=== PATIENT | male | born 1930 | race Caucasian/White ===

== ENCOUNTER → 2016-10-18 | Outpatient (CLI) | payer MEDICARE ==
[~2016-10-18] MED LIST: ASPI-345 PO; CEPH-507 PO; CHOL200018 PO; CPR500T PO; GBPN100C PO; GLIP10TA13 PO; LSNP10T PO; LVT.025T PO; METF500T4 PO; METO25TA60 PO; MGX400T PO; MULT1TAB PO; OMEP20TA PO; PRED20TA PO; SAXA2.5T PO; SIMV40TA2 PO; TERA5CAP3; WARF5TAB PO
== END ==
LOC: LAB 14:23
PROVIDERS: ATTEND Family Medicine
DX: Z51.81 Encounter for therapeutic drug level monitoring (principal); Z79.01 Long term (current) use of anticoagulants
CPT/HCPCS: 36415; 85610

== ENCOUNTER → 2016-11-23 | Outpatient (CLI) | payer MEDICARE | LOC: LAB 09:35 | PROVIDERS: ATTEND Family Medicine | DX: Z51.81 Encounter for therapeutic drug level monitoring (principal); Z79.01 Long term (current) use of anticoagulants | CPT/HCPCS: 36415; 85610 ==

== ENCOUNTER → 2016-12-06 | Outpatient (CLI) | payer MEDICARE ==
[2016-12-06 11:20] LABS: ANION GAP 15.8 MEQ/L (3-15)
== END ==
LOC: LAB 10:50
PROVIDERS: ATTEND Family Medicine
DX: E11.65 Type 2 diabetes mellitus with hyperglycemia (principal); R79.89 Other specified abnormal findings of blood chemistry
CPT/HCPCS: 36415; 80048; 82043; 83036

== ENCOUNTER → 2016-12-23 | Outpatient (CLI) | payer MEDICARE | LOC: LAB 13:44 | PROVIDERS: ATTEND Family Medicine | DX: Z51.81 Encounter for therapeutic drug level monitoring (principal); Z79.01 Long term (current) use of anticoagulants | CPT/HCPCS: 36415; 85610 ==